=== PATIENT | male | born 1985 | race Two or more races ===

== ENCOUNTER 2018-03-17 00:03 | Emergency (ER) | payer MEDICAID ==
[~2018-03-17] VITALS: Ht 172.7 cm; Wt 90.7 kg
[2018-03-17] MEDS ORDERED: LORazepam 0.5 MG TAB ONE (00:27)
[2018-03-17] MEDS ORDERED: LORazepam 0.5 MG TAB PO ONE (00:30)
[2018-03-17 00:32] VITALS: BP 126/104
== END 2018-03-17 00:54 | disposition left against medical advice (07) ==
LOC: ER 00:06
DX: F41.9 Anxiety disorder, unspecified (principal); Z53.21 Procedure and treatment not carried out due to patient leaving prior to being seen by health care provider
CPT/HCPCS: 93005